=== PATIENT | male | born 1960 | race Two or more races ===

== ENCOUNTER 2019-12-18 13:58 | Inpatient (IN) | payer MEDICAID, OTHER ==
[~2019-12-18] VITALS: Ht 160 cm; Wt 55.3 kg
[2019-12-18 14:39] LABS: BASOPHILS % (AUTO) 0.3 % (0.0-2.0); EOSINOPHILS % (AUTO) 0.1 % (1.0-6.0); HEMOGLOBIN 14.7 g/dL (13.5-17.5); LYMPHOCYTES % (AUTO) 7.8 % (22.0-44.0); MEAN CORPUSCULAR HEMOGLOBIN 30.1 pg (26.0-34.0); MEAN CORPUSCULAR HGB CONC 34.2 G/dL (31.0-37.0); MEAN CORPUSCULAR VOLUME 88 fL (80-100); MONOCYTES # (AUTO) 0.7 K/uL (0.1-1.0); MONOCYTES % (AUTO) 5.4 % (2.0-9.0); NEUTROPHILS # (AUTO) 11.1 K/uL (1.8-7.7); PLATELET COUNT (AUTO) 352 K/uL (150-450); RED BLOOD CELL COUNT(AUTO) 4.89 MIL/uL (4.50-5.90); RED CELL DISTRIBUTION WIDTH 13.3 % (11.5-14.5)
[2019-12-18 14:41] LABS: NEUTROPHILS % (AUTO) 86.4 % (40.0-70.0)
[2019-12-18 14:49] LABS: ANION GAP 10 mmol/L (8-16); CALCIUM, TOTAL 9.5 mg/dL (8.8-10.5); CARBON DIOXIDE 27 mmol/L (22-29); CHLORIDE 99 mmol/L (98-107); CREATININE 1.09 mg/dL (0.60-1.30); GLOMERULAR FILTR. RATE CALC > 60 mL/min (>60); GLUCOSE,RANDOM 70 mg/dL (70-110); POTASSIUM 4.2 mmol/L (3.5-5.1); SODIUM SERUM 136 mmol/L (136-145); UREA NITROGEN, BLOOD 34 mg/dL (7-18)
[2019-12-18 14:55] LABS: ALANINE AMINOTRANSFERASE 126 U/L (12-78); ALBUMIN 4.3 g/dL (3.4-5.0); ALKALINE PHOSPHATASE 106 U/L (46-116); ASPARTATE AMINOTRANSFERASE 177 U/L (15-37); BILIRUBIN,TOTAL 1.4 mg/dL (0.1-1.0); TOTAL PROTEIN, SERUM 7.8 g/dL (6.4-8.2)
[2019-12-18] MEDS ORDERED: DiphenhydrAMINE HCL 25 MG CAPSULE PO ONE (16:00)
[2019-12-18] MEDS ORDERED: LORazepam 2 MG TABLET PO ONE (16:00)
[2019-12-18] MEDS ORDERED: HALOPERIDOL 5 MG TABLET PO ONE (16:00)
[2019-12-18] MEDS ORDERED: HALOPERIDOL 5 MG TABLET PO PRN (17:45)
[2019-12-18] MEDS ORDERED: LORazepam 2 MG TABLET PO PRN (17:45)
[2019-12-18] MEDS ORDERED: ZOLPIDEM TARTRATE 10 MG TABLET PO PRN (17:45)
[2019-12-18 20:20] VITALS: BP 135/69
[2019-12-18 21:27] VITALS: BP 135/69
[2019-12-19] MEDS ORDERED: INFLUENZA VIRUS VACCINE QVS 2019-20 (3YR+)/PF 60 MCG/0.5 ML SYRINGE IM ONE (01:30)
[2019-12-19 05:50] VITALS: BP 132/76
[2019-12-19 08:18] VITALS: BP 117/73
[2019-12-19] MEDS ORDERED: RisperiDONE 1 MG TABLET PO SCH (12:30)
[2019-12-19] MEDS: RisperiDONE 1 MG TABLET PO SCH ×2 (12:35→16:46)
[2019-12-19] MEDS ORDERED: NICOTINE 14 MG/24 HOUR PATCH TD PRN (15:30)
[2019-12-19] MEDS ORDERED: MAGNESIUM HYDROXIDE SUSPENSION 30 ML UDCUP PO PRN (15:30)
[2019-12-19] MEDS ORDERED: ONDANSETRON HCL 4 MG TABLET PO PRN (15:30)
[2019-12-19] MEDS ORDERED: ALBUTEROL SULFATE HFA 90 MCG/PUFF 8 GM INHALER IH PRN (15:30)
[2019-12-19] MEDS ORDERED: PETROLATUM,WHITE 28 GM JELLY TP PRN (15:30)
[2019-12-19] MEDS ORDERED: LOPERAMIDE HCL 2 MG CAPSULE PO PRN (15:30)
[2019-12-19] MEDS ORDERED: CloNIDine HCL 0.1 MG TABLET PO PRN (15:30)
[2019-12-19] MEDS ORDERED: MAG HYDROX/AL HYDROX/SIMETH ES 30 ML SUSPENSION UDCUP PO PRN (15:30)
[2019-12-19] MEDS ORDERED: GuaiFENesin/D-METHORPHAN [SUGAR-FREE] 200-20MG/10 ML SYRUP UDCUP PO PRN (15:30)
[2019-12-19] MEDS ORDERED: ACETAMINOPHEN 325 MG TABLET PO PRN (15:30)
[2019-12-19] MEDS ORDERED: DOCUSATE SODIUM 100 MG CAPSULE PO PRN (15:30)
[2019-12-19] MEDS ORDERED: IBUPROFEN 400 MG TABLET PO PRN (15:30)
[2019-12-19 16:11] VITALS: BP 120/58
[2019-12-20 05:25] VITALS: BP 131/95
[2019-12-20 07:49] LABS: CHOL/HDL RATIO 2.3 (4.2-7.3)
[2019-12-20 08:30] VITALS: BP 121/76
[2019-12-20] MEDS: RisperiDONE 1 MG TABLET PO SCH ×2 (08:48→16:38)
[2019-12-20 16:06] VITALS: BP 148/86
[2019-12-21 06:28] VITALS: BP 149/91
[2019-12-21 08:15] VITALS: BP 130/87
[2019-12-21] MEDS: RisperiDONE 1 MG TABLET PO SCH (08:26)
[2019-12-21] MEDS ORDERED: RISP.5 PO (09:49)
[2019-12-21] MEDS ORDERED: RISP1 PO (09:50)
== END 2019-12-21 12:54 | disposition home or self-care (01) | DRG 751 ==
LOC: EMS 13:59 → B3A 18:54
PROVIDERS: ADMIT Psychiatry & Neurology Psychiatry; ATTEND Psychiatry & Neurology Psychiatry
DX: F29 Unspecified psychosis not due to a substance or known physiological condition (principal); K70.30 Alcoholic cirrhosis of liver without ascites; D72.829 Elevated white blood cell count, unspecified; F10.10 Alcohol abuse, uncomplicated; F12.10 Cannabis abuse, uncomplicated; F15.10 Other stimulant abuse, uncomplicated; F17.210 Nicotine dependence, cigarettes, uncomplicated; F60.0 Paranoid personality disorder; Z59.0 Homelessness; Z28.21 Immunization not carried out because of patient refusal; Z71.51 Drug abuse counseling and surveillance of drug abuser; Z71.41 Alcohol abuse counseling and surveillance of alcoholic
CPT/HCPCS: 83036; G0480

== ENCOUNTER 2024-02-22 04:43 | Emergency (ER) | payer MEDICAID, OTHER ==
[~2024-02-22] VITALS: Ht 170.2 cm; Wt 59.1 kg
[~2024-02-22 04:43] MED LIST: RISP1TAB48 PO
[2024-02-22 04:46] VITALS: TEMP 97
[2024-02-22 07:05] VITALS: BP 118/80; PULSE 77; RESP 16
== END 2024-02-22 07:46 | disposition home or self-care (01) ==
LOC: EMS 04:43
DX: R52 Pain, unspecified (principal); F17.210 Nicotine dependence, cigarettes, uncomplicated; F14.90 Cocaine use, unspecified, uncomplicated; F12.90 Cannabis use, unspecified, uncomplicated; F15.90 Other stimulant use, unspecified, uncomplicated; Z98.890 Other specified postprocedural states
CPT/HCPCS: 99281; Z7502